=== PATIENT | female | born 1975 | race Caucasian/White ===

== ENCOUNTER 2017-05-31 17:38 | Emergency (ER) | payer SELFPAY ==
[~2017-05-31] VITALS: Ht 165.1 cm; Wt 54.4 kg
[2017-05-31 17:47] VITALS: BP 99/59
[2017-05-31] MEDS ORDERED: PRED50TA PO (18:02)
[2017-05-31] MEDS ORDERED: PROAIR HFA8.5 GM INH (18:02)
[2017-05-31] MEDS ORDERED: BENZ100C PO (18:02)
[2017-05-31] MEDS ORDERED: AZIT250T PO (18:02)
--- NOTE | 2017-05-31 18:02 | PHYS DOC ---
Past Medical History Past Medical History: Bronchitis, Pneumonia Past Surgical History: No Surgical History Smokin Pack Per Day Additional Information: 08/28 ppd Alcohol Use: None Drug Use: None Adult General Chief Complaint Chief Complaint: Congestion HPI HPI Patient is a 41 year old female presents to the emergency department with complaints of a cough for one week. She has no reports of fever, no headache. She states she has developed ear pain and throat pain. Review of Systems Review of Systems Constitutional: Denies fever or chills [] Eyes: Denies change in visual acuity, redness, or eye pain [] HENT: Bilateral ear pain, sore throat Respiratory: Cough without shortness of breath Cardiovascular: No additional information not addressed in HPI [] GI: Denies abdominal pain, nausea, vomiting, bloody stools or diarrhea [] : Denies dysuria or hematuria [] Musculoskeletal: Denies back pain or joint pain [] Integument: Denies rash or skin lesions [] Neurologic: Denies headache, focal weakness or sensory changes [] Endocrine: Denies polyuria or polydipsia [] Allergies Allergies Allergies Coded Allergies Type Severity Reaction Last Updated Verified morphine Allergy Intermediate hives 05/31/17 Yes Physical Exam Physical Exam Constitutional: Well developed, well nourished, no acute distress, non-toxic appearance. [] HENT: Normocephalic, atraumatic, bilateral external ears normal, tympanic membrane with effusion oropharynx moist, no oral exudates, nose normal. [] Eyes: PERRLA, EOMI, conjunctiva normal, no discharge. [] Neck: Normal range of motion, no tenderness, supple, no stridor. [] Cardiovascular:Heart rate regular rhythm, no murmur [] Lungs & Thorax: Breast sounds with scattered rhonchi, clear with cough Abdomen: Bowel sounds normal, soft, no tenderness, no masses, no pulsatile masses. [] Skin: Warm, dry, no erythema, no rash. [] Back: No tenderness, no CVA tenderness. [] Extremities: No tenderness, no cyanosis, no clubbing, ROM intact, no edema. [] Neurologic: Alert and oriented X 3, normal motor function, normal sensory function, no focal deficits noted. [] Psychologic: Affect normal, judgement normal, mood normal. [] Current Patient Data Vital Signs Vital Signs Date Time Temp Pulse Resp B/P (MAP) Pulse Ox O2 Delivery O2 Flow Rate FiO2 05/31/17 17:47 98.0 85 18 100 Room Air 98.0 EKG EKG [] Radiology/Procedures Radiology/Procedures [] Course & Med Decision Making Course & Med Decision Making Pertinent Labs and Imaging studies reviewed. (See chart for details) [] Dragon Disclaimer Dragon Disclaimer This electronic medical record was generated, in whole or in part, using a voice recognition dictation system. Departure Departure Impression: Primary Impression: Bronchitis Disposition: 01 HOME, SELF-CARE Condition: STABLE Referrals: NO PCP (PCP) [facility] Patient Instructions: Acute Bronchitis Scripts Prednisone (PREDNISONE) 50 Mg Tablet 1 TAB PO DAILY, #5 TAB Prov: ROBBIE VALENZUELA APRN 05/31/17 Benzonatate (TESSALON PERLE) 100 Mg Capsule 1 CAP PO TID, #21 CAP Prov: ROBBIE VALENZUELA APRN 05/31/17 Albuterol Sulfate (PROAIR HFA INHALER) 8.5 Gm Hfa.aer.ad 1 PUFF INH PRN Q6HRS Y for SHORTNESS OF BREATH, #1 INHALER 0 Refills Prov: ROBBIE VALENZUELA APRN 05/31/17 Azithromycin (ZITHROMAX) 250 Mg Tablet 1 PKG PO UD, #6 TAB A2 tablets on day 1 and one tablet on days 2 through 5 Prov: ROBBIE VALENZUELA APRN 05/31/17 ROBBIE VALENZUELA APRN May 31, 2017 18:02
== END 2017-05-31 18:35 | disposition home or self-care (01) ==
LOC: ER 17:38
DX: J40 Bronchitis, not specified as acute or chronic (principal); H92.03 Otalgia, bilateral; F17.200 Nicotine dependence, unspecified, uncomplicated; Z87.01 Personal history of pneumonia (recurrent); Z88.5 Allergy status to narcotic agent
CPT/HCPCS: 99283